=== PATIENT | male | born 2000 | race Caucasian/White ===

== ENCOUNTER 2020-11-07 20:11 | Inpatient (IN) | payer BC, OTHER ==
[~2020-11-07] VITALS: Ht 198.1 cm; Wt 145.3 kg
--- NOTE | 2020-11-07 20:29 | NUR ---
mother jorden [phone]
--- NOTE | 2020-11-07 20:50 | NUR ---
Patient presents to ER c/o SOB, cough, and sore throat. Patient states he's had these symptoms x17 days. Patient is COVID positive 3 days. RA sat low in triage. Patient on NRB at 15lpm in room and sats are 93%. Patient has no accessory muscle use and is speaking in full word sentences. Respirations even.
[2020-11-07 21:05] LABS: BASOPHILS % (AUTO) 0 % (0-1); EOSINOPHILS % (AUTO) 0 % (1-7); LYMPHOCYTES % (AUTO) 7 % (22-44); MEAN CORPUSCULAR HEMOGLOBIN 27.9 pg (27.5-34.5); MEAN CORPUSCULAR HGB CONC 33.4 g/dL (33.2-36.2); MEAN PLATELET VOLUME 8.8 fL (7.4-10.4); MONOCYTES % (AUTO) 5 % (2-9); NEUTROPHILS % (AUTO) 87 % (42-75); PLATELET COUNT 217 x10^3/uL (130-400); RED BLOOD COUNT 5.05 x10^6/uL (4.38-5.82); RED CELL DISTRIBUTION WIDTH 13.4 % (9.4-14.8)
--- NOTE | 2020-11-07 21:07 | NUR ---
PATIENT PROVIDED WITH WATER AT THIS TIME. UPDATED PATIENT THAT I UPDATED HIS FATHER ON HIS CURRENT STATUS. PATIENT STATES IT IS OK TO CONTINUE TO UPDATE HIM. PATIENT DENIES ANY OTHER NEEDS AT THIS TIME. CALL GREEN IN REACH. WILL CONTINUE TO MONITOR.
[2020-11-07 21:12] LABS: ALBUMIN 3.1 g/dL (3.4-5.0); ANION GAP 9 mmol/L (5-15); CALCIUM 8.3 mg/dL (8.5-10.1); CHLORIDE 105 mmol/L (98-107); CREATININE 1.03 mg/dL (0.7-1.3)
[2020-11-07 21:17] LABS: D-DIMER (DIC) 0.26 ug/mlFEU (0.00-0.52); PROTIME 11.2 Seconds (9.6-11.5)
[2020-11-07 21:19] LABS: ALANINE AMINOTRANSFERASE 33 U/L (12-78); ALKALINE PHOSPHATASE 72 U/L (45-117); BILIRUBIN,TOTAL 0.4 mg/dL (0.2-1.0); TOTAL PROTEIN 7.9 g/dL (6.4-8.2)
--- NOTE | 2020-11-07 22:19 | NUR ---
PATIENT RESTING IN STRETCHER WATCHING TV. DENIES NEEDS AT THIS TIME. VSS. WILL CONTINUE TO MONITOR. UPDATED PATIENT ON POC.
[2020-11-07] MEDS ORDERED: ONDANSETRON 2MG/ML, 2ML IVPush PRN (22:30)
[2020-11-07] MEDS ORDERED: PHARMACY MAY ADJ FOR RENAL FX MC PRN (22:30)
[2020-11-07] MEDS ORDERED: POLYETHYLENE GLYCOL 17 GM PACKET PO PRN (22:30)
[2020-11-07] MEDS ORDERED: LABETALOL 5MG/ML, 20ML IVPush PRN (22:30)
[2020-11-07] MEDS ORDERED: ENOXAPARIN 40 MG/0.4 ML SQ SCH (22:30)
[2020-11-07] MEDS ORDERED: FAMOTIDINE 20 MG TABLET ONE (22:56)
[2020-11-07] MEDS ORDERED: ENOXAPARIN 40 MG/0.4 ML ONE (22:56)
[2020-11-07] MEDS ORDERED: CHOLECALCIFEROL 1,000 UNIT TABLET ONE (22:57)
[2020-11-07] MEDS ORDERED: MELATONIN 5 MG TABLET ONE (22:58)
[2020-11-07] MEDS: FAMOTIDINE 20 MG TABLET PO SCH (23:00)
[2020-11-07] MEDS: ASCORBIC ACID 500 MG TABLET PO SCH (23:00)
[2020-11-07] MEDS: MELATONIN 5 MG TABLET PO SCH (23:00)
--- NOTE | 2020-11-07 23:00 | NUR ---
EQUIPMENT MAINTENANCE ENGINEER TO CALL RT AT THIS TIME TO START HIGH FLOW NC PER ORDERS.
--- NOTE | 2020-11-07 23:10 | NUR ---
PATIENT PLACED ON 12L OXY MASK BY RT. PATIENT THEN C/O OF TROUBLE BREATHING. INCREASED TO 15L OXY MASK. SP02 93% AND PATIENT STATES HE FEELS BETTER. WILL CONTINUE TO MONITOR.
--- NOTE | 2020-11-07 23:15 | NUR ---
PLACED PATIENT ON INPATIENT BED AT THIS TIME
[2020-11-07] MEDS ORDERED: REMDESIVIR 200 MG in SODIUM CHLORIDE 0.9% 100 ML IVPB ONE (23:30)
--- NOTE | 2020-11-08 02:52 | NUR ---
PT RESTING COMFORTABLY AT THIS TIME. TOLERATING OXY MASK WELL. VITALS WNL, UNCHANGED. RESPIRATORY STATUS UNCHANGED. DENIES NEEDS. CALL GREEN WITHIN REACH.
[2020-11-08 06:48] LABS: BASOPHILS % (AUTO) 0 % (0-1); EOSINOPHILS % (AUTO) 0 % (1-7); LYMPHOCYTES % (AUTO) 13 % (22-44); MEAN CORPUSCULAR HEMOGLOBIN 28.2 pg (27.5-34.5); MEAN CORPUSCULAR HGB CONC 33.8 g/dL (33.2-36.2); MEAN PLATELET VOLUME 8.8 fL (7.4-10.4); MONOCYTES % (AUTO) 10 % (2-9); NEUTROPHILS % (AUTO) 76 % (42-75); PLATELET COUNT 194 x10^3/uL (130-400); RED BLOOD COUNT 4.82 x10^6/uL (4.38-5.82); RED CELL DISTRIBUTION WIDTH 13.6 % (9.4-14.8)
[2020-11-08 06:49] LABS: ALANINE AMINOTRANSFERASE 33 U/L (12-78); ALBUMIN 2.7 g/dL (3.4-5.0); ANION GAP 6 mmol/L (5-15); CHLORIDE 104 mmol/L (98-107); CREATININE 0.76 mg/dL (0.7-1.3)
[2020-11-08 06:52] LABS: ALKALINE PHOSPHATASE 66 U/L (45-117); BILIRUBIN,TOTAL 0.5 mg/dL (0.2-1.0); TOTAL PROTEIN 7.3 g/dL (6.4-8.2)
--- NOTE | 2020-11-08 06:52 | NUR ---
REPORT TO EMMY CARRERO NO FURTHER QUESTIONS.
--- NOTE | 2020-11-08 07:00 | NUR ---
Report from EMMY Peacock. First contact with patient, in hospital bed sitting up resting. RR 29, o2 sats maintained on 15L oximask. NSR no ectopy. Pt waiting for med/tele bed. Will continue to monitor.
--- NOTE | 2020-11-08 08:38 | NUR ---
Pt was on phone with his mother, took his o2 mask off, sats drop to 78% pt very sob. Placed mask back on pt within 60 sec o2 back up to 91%. Encouraged pt to leave mask on during phone calls. Urinal emptied 800ml. Ice water refilled. Will continue to monitor.
[2020-11-08] MEDS ORDERED: FAMOTIDINE 20 MG TABLET ONE ×2 (08:42→22:04)
[2020-11-08] MEDS ORDERED: DEXAMETHASONE 4 MG/ML, 1ML ONE (08:42)
[2020-11-08] MEDS ORDERED: ZINC SULFATE 220 MG CAPSULE ONE (08:43)
[2020-11-08] MEDS ORDERED: ASCORBIC ACID 500 MG TABLET ONE ×2 (08:43→22:05)
[2020-11-08] MEDS: ASCORBIC ACID 500 MG TABLET PO SCH ×2 (08:52→22:49)
[2020-11-08] MEDS: DEXAMETHASONE 4 MG/ML, 1ML IVPush SCH (08:52)
[2020-11-08] MEDS: FAMOTIDINE 20 MG TABLET PO SCH ×2 (08:52→22:50)
[2020-11-08] MEDS: ZINC SULFATE 220 MG CAPSULE PO SCH (08:53)
--- NOTE | 2020-11-08 08:56 | NUR ---
Report to EMMY Collier
--- NOTE | 2020-11-08 09:19 | NUR ---
CALL TO RT FOR REASSESSMENT OF PT. PER TABATHA, RT SHE WILL COME TO ED FOR ASSESSMENT, BUT TO PLACE PT ON NRB WHILE WAITING.
--- NOTE | 2020-11-08 09:45 | NUR ---
TABATHA, RT AT BEDSIDE. PT NOT WOB, TACHYPNEA RATE ACCEPTABLE. NAD NOTED IN PT AT THIS TIME.
--- NOTE | 2020-11-08 10:35 | NUR ---
PT RESTING WITH EYES CLOSED IN BED, NAD NOTED AT THIS TIME. NRB REMAINS IN PLACE.
--- NOTE | 2020-11-08 11:02 | NUR ---
REPORT TO EMMY LEWIS AND EMMY LINDER.
--- NOTE | 2020-11-08 11:16 | NUR ---
ED Nursing hand-off report received from EMMY Collier
--- NOTE | 2020-11-08 12:03 | NUR ---
RT at bs, Dr Lilly notified
--- NOTE | 2020-11-08 12:05 | NUR ---
PRECEPTOR RN: CALL TO DR. GRIFFIN TO MAKE AWARE PT NOTED TO HAVE INCREASE WOB AND COUGHING BUT UNABLE TO MOVE SECREATIONS, RT CONSULTED AND WILL PLACE PT ON OPTIFLOW. PER DR. GRIFFIN HE WILL ORDER GUAIFENESIN, ALSO GAVE ORDER TO INCREASE LOVENOX TO 60MG SQ BID, ORDER READ BACK AND VERIFIED.
[2020-11-08] MEDS ORDERED: GUAIFENESIN/DM 200-20MG, 10ML UDC ONE (14:37)
[2020-11-08] MEDS: CEFTRIAXONE 2 GM in DEXTROSE 5% 50 ML IVPB SCH (15:00)
[2020-11-08] MEDS ORDERED: GUAIFENESIN/DM 200-20MG, 10ML UDC PO PRN (15:30)
[2020-11-08] MEDS: AZITHROMYCIN 500 MG in SODIUM CHLORIDE 0.9% 250 ML IV SCH (16:19)
[2020-11-08] MEDS: MELATONIN 5 MG TABLET PO SCH (21:00)
[2020-11-08] MEDS ORDERED: ENOXAPARIN 60 MG/0.6 ML ONE (22:05)
[2020-11-08] MEDS ORDERED: MELATONIN 5 MG TABLET ONE (22:05)
[2020-11-08] MEDS: ENOXAPARIN 40 MG/0.4 ML SQ SCH (22:52)
[2020-11-08] MEDS: REMDESIVIR 100 MG in SODIUM CHLORIDE 0.9% 100 ML IVPB SCH (22:53)
--- NOTE | 2020-11-08 23:28 | NUR ---
ED Nursing hand-off report given to EMMY Hammond; questions answered
--- NOTE | 2020-11-08 23:29 | NUR ---
RECIEVED REPORT FROM EMMY LINDER. ASSUMED CARE OF PT
--- NOTE | 2020-11-08 23:59 | NUR ---
PATIENT SITTING UP IN BED, SOB, SPEAKING SOFTLY AND IN SHORT SENTENCES. PATIENT DENIES ANY NEEDS AT THIS TIME. TM
[2020-11-09 05:43] LABS: ALANINE AMINOTRANSFERASE 30 U/L (12-78); ALBUMIN 2.7 g/dL (3.4-5.0); ANION GAP 5 mmol/L (5-15); CHLORIDE 108 mmol/L (98-107); CREATININE 0.55 mg/dL (0.7-1.3)
[2020-11-09 05:46] LABS: ALKALINE PHOSPHATASE 63 U/L (45-117); BILIRUBIN,TOTAL 0.3 mg/dL (0.2-1.0); TOTAL PROTEIN 7.4 g/dL (6.4-8.2)
--- NOTE | 2020-11-09 06:54 | NUR ---
Report given to Amira BOOTH
--- NOTE | 2020-11-09 07:16 | NUR ---
PT SITTING UP, SLIGHTLY RECLINED IN BED. NAD NOTED AT THIS TIME. NO WOB NOTED. HOB TO POSITION OF COMFORT. BREAKFAST MEAL TRAY ORDERED. URINAL(S) EMPTIED, ONE IN REACH OF PT.
[2020-11-09] MEDS ORDERED: DEXAMETHASONE 4 MG/ML, 1ML ONE (07:29)
[2020-11-09] MEDS ORDERED: ASCORBIC ACID 500 MG TABLET ONE (07:30)
[2020-11-09] MEDS ORDERED: FAMOTIDINE 20 MG TABLET ONE (07:30)
[2020-11-09] MEDS ORDERED: ENOXAPARIN 60 MG/0.6 ML ONE (07:30)
[2020-11-09] MEDS ORDERED: ZINC SULFATE 220 MG CAPSULE ONE (07:30)
[2020-11-09] MEDS: ASCORBIC ACID 500 MG TABLET PO SCH ×2 (08:12→20:47)
[2020-11-09] MEDS: DEXAMETHASONE 4 MG/ML, 1ML IVPush SCH (08:12)
[2020-11-09] MEDS: ZINC SULFATE 220 MG CAPSULE PO SCH (08:12)
[2020-11-09] MEDS: FAMOTIDINE 20 MG TABLET PO SCH ×2 (08:12→20:48)
[2020-11-09] MEDS: ENOXAPARIN 40 MG/0.4 ML SQ SCH (08:14)
--- NOTE | 2020-11-09 08:40 | NUR ---
MEAL TRAY AT BEDSIDE. TISSUES AND BAG FOR USED TISSUE PROVIDED. NAD NOTED AT THIS TIME.
--- NOTE | 2020-11-09 09:40 | NUR ---
TABATHA, RT TURNED DOWN PT'S OPTIFLOW SETTINGS PER PT COMFORT AND CURRENT NEEDS. NAD NOTED IN PT AT THIS TIME. CALL LIGHT IN REACH. URINAL IN REACH. PT EDUCATED ON FLEXING AND STRETCHING CALVES.
--- NOTE | 2020-11-09 10:40 | NUR ---
PT SITTING UP, RESTING WITH EYES CLOSED. NAD NOTED AT THIS TIME. RESPIRATIONS EVEN AND UNLABORED ON OPTIFLOW, WHICH REMAINS LOWERED FROM PREVIOUS RT VISIT.
--- NOTE | 2020-11-09 10:51 | NUR ---
RN AT BEDSIDE TO REASSESS VS, PHYSICAL ASSESSMENT AND EDUCATE PT ON INCENTIVE SPIROMETER USE. PT VERBALIZES UNDERSTANDING.
--- NOTE | 2020-11-09 11:50 | NUR ---
ASSUMED CARE OF PT, PT RESTING ON BED WATCHING TV IN NAD.
[2020-11-09] MEDS: CEFTRIAXONE 2 GM in DEXTROSE 5% 50 ML IVPB SCH (14:04)
[2020-11-09] MEDS: AZITHROMYCIN 500 MG in SODIUM CHLORIDE 0.9% 250 ML IV SCH (14:54)
--- NOTE | 2020-11-09 15:30 | NUR ---
PT C/O LEFT CHEST DISCOMFORT, REPORTED TO DR. GRIFFIN, PER DR. GRIFFIN ORDER OXYCODONE 5MG PO Q4H PRN, AND TYLENOL 650MG PO Q6H PRN.
[2020-11-09] MEDS ORDERED: ACETAMINOPHEN 325 MG TABLET ONE (15:38)
[2020-11-09] MEDS ORDERED: OXYcodone IR 5MG TABLET PO PRN (16:00)
[2020-11-09] MEDS ORDERED: ACETAMINOPHEN 325 MG TABLET PO PRN (16:00)
--- NOTE | 2020-11-09 16:57 | NUR ---
BREAK RN: PT TOLLERATING VAPO THERM, SP02 = 95% RR20. PT USING IS, VOL TO 1000ML. CALL LIGHT W/I REACH, NAD NOTED, VSS.
--- NOTE | 2020-11-09 17:04 | NUR ---
BREAK RN: DAWSON TP TO EMMY LOPEZ
[2020-11-09 18:44] VITALS: BP 120/71
[2020-11-09] MEDS: MELATONIN 5 MG TABLET PO SCH (20:48)
[2020-11-09] MEDS: ENOXAPARIN 60 MG/0.6 ML SQ SCH (20:50)
[2020-11-09] MEDS: REMDESIVIR 100 MG in SODIUM CHLORIDE 0.9% 100 ML IVPB SCH (23:12)
[2020-11-10 01:04] VITALS: BP 116/64
[2020-11-10 06:16] LABS: ALANINE AMINOTRANSFERASE 31 U/L (12-78); ALBUMIN 2.8 g/dL (3.4-5.0); ANION GAP 7 mmol/L (5-15); CALCIUM 8.3 mg/dL (8.5-10.1); CHLORIDE 108 mmol/L (98-107); CREATININE 0.56 mg/dL (0.7-1.3)
[2020-11-10 06:19] LABS: ALKALINE PHOSPHATASE 58 U/L (45-117); BILIRUBIN,TOTAL 0.4 mg/dL (0.2-1.0); TOTAL PROTEIN 7.2 g/dL (6.4-8.2)
[2020-11-10] MEDS ORDERED: POTASSIUM CHLORIDE 20 MEQ TAB.ER.PRT PO ONE (08:00)
[2020-11-10 08:10] VITALS: BP 116/65
[2020-11-10] MEDS: FAMOTIDINE 20 MG TABLET PO SCH ×2 (08:42→20:18)
[2020-11-10] MEDS: ZINC SULFATE 220 MG CAPSULE PO SCH (08:42)
[2020-11-10] MEDS: CHOLECALCIFEROL 5,000u TAB PO SCH (08:42)
[2020-11-10] MEDS: ASCORBIC ACID 500 MG TABLET PO SCH ×2 (08:42→20:18)
[2020-11-10] MEDS: ENOXAPARIN 60 MG/0.6 ML SQ SCH ×2 (08:44→20:18)
[2020-11-10] MEDS: DEXAMETHASONE 4 MG/ML, 1ML IVPush SCH (08:47)
[2020-11-10 12:59] VITALS: BP 109/67
[2020-11-10] MEDS: CEFTRIAXONE 2 GM in DEXTROSE 5% 50 ML IVPB SCH (15:30)
[2020-11-10] MEDS: AZITHROMYCIN 500 MG in SODIUM CHLORIDE 0.9% 250 ML IV SCH (17:23)
[2020-11-10] MEDS: MELATONIN 5 MG TABLET PO SCH (20:18)
[2020-11-10 20:57] VITALS: BP 109/65
[2020-11-10] MEDS: REMDESIVIR 100 MG in SODIUM CHLORIDE 0.9% 100 ML IVPB SCH (22:46)
[2020-11-11 03:17] VITALS: BP 120/69
[2020-11-11 07:36] LABS: BASOPHILS % (AUTO) 1 % (0-1); EOSINOPHILS % (AUTO) 4 % (1-7); LYMPHOCYTES % (AUTO) 20 % (22-44); MEAN CORPUSCULAR HEMOGLOBIN 28.6 pg (27.5-34.5); MEAN CORPUSCULAR HGB CONC 34.1 g/dL (33.2-36.2); MEAN PLATELET VOLUME 8.6 fL (7.4-10.4); MONOCYTES % (AUTO) 12 % (2-9); NEUTROPHILS % (AUTO) 63 % (42-75); PLATELET COUNT 345 x10^3/uL (130-400); RED BLOOD COUNT 4.88 x10^6/uL (4.38-5.82); RED CELL DISTRIBUTION WIDTH 13.8 % (9.4-14.8)
[2020-11-11 07:45] LABS: CHLORIDE 112 mmol/L (98-107)
[2020-11-11 07:52] VITALS: BP 120/75
[2020-11-11 08:05] LABS: ALANINE AMINOTRANSFERASE 54 U/L (12-78); ALBUMIN 3.1 g/dL (3.4-5.0); ALKALINE PHOSPHATASE 56 U/L (45-117); ANION GAP 7 mmol/L (5-15); BILIRUBIN,TOTAL 0.4 mg/dL (0.2-1.0); CALCIUM 8.4 mg/dL (8.5-10.1); CREATININE 0.63 mg/dL (0.7-1.3); TOTAL PROTEIN 7.2 g/dL (6.4-8.2)
[2020-11-11 08:07] LABS: D-DIMER (DIC) 0.23 ug/mlFEU (0.00-0.52); PROTIME 11.9 Seconds (9.6-11.5)
[2020-11-11] MEDS: ASCORBIC ACID 500 MG TABLET PO SCH ×2 (10:12→23:04)
[2020-11-11] MEDS: ENOXAPARIN 60 MG/0.6 ML SQ SCH ×2 (10:12→23:06)
[2020-11-11] MEDS: FAMOTIDINE 20 MG TABLET PO SCH ×2 (10:12→23:04)
[2020-11-11] MEDS: ZINC SULFATE 220 MG CAPSULE PO SCH (10:12)
[2020-11-11] MEDS: CHOLECALCIFEROL 5,000u TAB PO SCH (10:12)
[2020-11-11] MEDS: DEXAMETHASONE 4 MG/ML, 1ML IVPush SCH (10:20)
[2020-11-11 12:20] VITALS: BP 117/71
[2020-11-11] MEDS: CEFTRIAXONE 2 GM in DEXTROSE 5% 50 ML IVPB SCH (16:18)
[2020-11-11] MEDS: AZITHROMYCIN 500 MG in SODIUM CHLORIDE 0.9% 250 ML IV SCH (17:16)
[2020-11-11 20:55] VITALS: BP 127/70
[2020-11-11] MEDS: MELATONIN 5 MG TABLET PO SCH (21:00)
[2020-11-11] MEDS: REMDESIVIR 100 MG in SODIUM CHLORIDE 0.9% 100 ML IVPB SCH (23:05)
[2020-11-12 02:09] VITALS: BP 132/68
[2020-11-12 07:37] VITALS: BP 116/69
[2020-11-12] MEDS: DEXAMETHASONE 4 MG/ML, 1ML IVPush SCH (09:13)
[2020-11-12] MEDS: FAMOTIDINE 20 MG TABLET PO SCH (09:13)
[2020-11-12] MEDS: ZINC SULFATE 220 MG CAPSULE PO SCH (09:13)
[2020-11-12] MEDS: ASCORBIC ACID 500 MG TABLET PO SCH (09:13)
[2020-11-12] MEDS: CHOLECALCIFEROL 5,000u TAB PO SCH (09:13)
[2020-11-12] MEDS: ENOXAPARIN 60 MG/0.6 ML SQ SCH (11:07)
[2020-11-12] MEDS ORDERED: CEFD300C37 PO (11:43)
[2020-11-12] MEDS ORDERED: ZINC220C8 PO (11:43)
[2020-11-12] MEDS ORDERED: AZIT500T10 PO (11:43)
[2020-11-12] MEDS ORDERED: ASCO500T9 PO (11:43)
[2020-11-12] MEDS ORDERED: MELA5TAB14 PO (11:43)
[2020-11-12] MEDS ORDERED: CHOL500045 PO (11:43)
[2020-11-12] MEDS ORDERED: DEXA6TAB6 PO (11:43)
== END 2020-11-12 15:23 | disposition home or self-care (01) | DRG 177 ==
LOC: ED 20:30 → EDIP 22:08 → 3N 11-09 16:41
PROVIDERS: ADMIT Internal Medicine; ATTEND Internal Medicine
PROC: XW033E5 Introduction of Remdesivir Anti-infective into Peripheral Vein, Percutaneous Approach, New Technology Group 5 (ICD-10-PCS; principal; 2020-11-08)
PROC: 5A0935A Assistance with Respiratory Ventilation, Less than 24 Consecutive Hours, High Flow/Velocity Cannula (ICD-10-PCS; 2020-11-08)
PROC: 5A0935A Assistance with Respiratory Ventilation, Less than 24 Consecutive Hours, High Flow/Velocity Cannula (ICD-10-PCS; 2020-11-10)
PROC: 5A0935A Assistance with Respiratory Ventilation, Less than 24 Consecutive Hours, High Flow/Velocity Cannula (ICD-10-PCS; 2020-11-11)
DX: U07.1 COVID-19 (principal); J12.82 Pneumonia due to coronavirus disease 2019; J96.01 Acute respiratory failure with hypoxia; D68.59 Other primary thrombophilia; E66.01 Morbid (severe) obesity due to excess calories; Z68.37 Body mass index [BMI] 37.0-37.9, adult
CPT/HCPCS: 36415; 71045; 80053; 82728; 83605; 83615; 84145; 85025; 85049; 85379; 85384; 85610; 85730; 86140; 87040; 93005; 99291; G0378; J0456; J0696; J1100; J1650; J7050